=== PATIENT | female | born 1990 | race African-American/Black ===

== ENCOUNTER 2021-05-26 21:58 | Emergency (ER) | payer MEDICAID, MEDICARE ==
[~2021-05-26] VITALS: Ht 167.6 cm; Wt 138.0 kg
[2021-05-26 23:29] LABS: CLARITY URINE CLOUDY (CLEAR); COLOR URINE YELLOW (YELLOW); KETONES URINE 1+ (NEGATIVE); LEUKOCYTE ESTERASE URINE 2+ (NEGATIVE); NITRITE URINE NEGATIVE (NEGATIVE); OCCULT BLOOD URINE NEGATIVE (NEGATIVE); PROTEIN URINE NEGATIVE (NEGATIVE); SPECIFIC GRAVITY URINE 1.031 (1.005-1.030); UROBILINOGEN URINE 0.2 E.U./dL (0.2-1.0)
[2021-05-26 23:32] LABS: BASOPHILS % 0.3 % (0.0-2.0); EOSINOPHILS % 0.7 % (0.0-5.0); HEMATOCRIT. 34.9 % (36.0-48.0); HEMOGLOBIN. 10.6 g/dL (12.0-16.0); LYMPHOCYTES % 17.7 % (20.0-50.0); MEAN CORPUSCULAR HEMOGLOBIN 21.4 pg (28.0-32.0); MEAN CORPUSCULAR VOLUME 70.7 fL (81.0-99.0); MEAN PLATELET VOLUME 7.4 fl (7.4-10.4); MONOCYTES % 6.2 % (2.0-8.0); NEUTROPHILS % 75.1 % (40.0-76.0); PLATELET 234 x1000/uL (130-400); RED BLOOD CELL COUNT 4.93 mill/uL (4.2-5.4); RED CELL DISTRIBUTION WIDTH 19.3 % (11.6-14.6)
[2021-05-26 23:43] LABS: CHLORIDE 109 mEq/L (98-107)
[2021-05-26 23:47] LABS: ETHANOL BLOOD < 10 mg/dL
[2021-05-26 23:54] LABS: B-HCG QUANTITATIVE < 1 mIU/mL (<3)
[2021-05-26 23:55] LABS: HCG SCREEN NEGATIVE
[2021-05-27 00:31] LABS: *AMPHETAMINES SCREEN URINE NEGATIVE (NEGATIVE); *BARBITURATES SCREEN URINE NEGATIVE (NEGATIVE)
[2021-05-27 00:32] LABS: *BENZODIAZEPINES SCREEN URINE NEGATIVE (NEGATIVE); *COCAINE SCREEN URINE NEGATIVE (NEGATIVE); CANNABINOID URINE SCREEN NEGATIVE (NEGATIVE); METHADONE URINE SCREEN NEGATIVE (NEGATIVE); OPIATES URINE SCREEN NEGATIVE (NEGATIVE); PHENCYCLIDINE URINE SCREEN NEGATIVE (NEGATIVE)
[2021-05-27] MEDS ORDERED: NITR-87 MT (04:19)
[2021-05-27] MEDS: NITROFURANTOIN 100MG M/M CAPSULE PO SCH ×2 (09:00→21:00)
[2021-05-27] MEDS ORDERED: ACETAMINOPHEN 325MG TABLET PO ONE (11:00)
[2021-05-27] MEDS ORDERED: LORAZEPAM 1MG TABLET PO NR (11:45)
[2021-05-27] MEDS ORDERED: LORAZEPAM 1MG TABLET PO ONE (11:45)
[2021-05-27] MEDS ORDERED: OLANZAPINE 10 MG/VIAL IM ONE (11:45)
[2021-05-27] MEDS ORDERED: DIPHENHYDRAMINE 50MG/ML VIAL IM ONE (11:45)
[2021-05-27] MEDS ORDERED: LORAZEPAM 2MG/ML CPJ IV ONE (11:45)
[2021-05-27] MEDS ORDERED: OLANZAPINE 5MG TABLET PO SCH (11:45)
[2021-05-27] MEDS ORDERED: HALOPERIDOL LACTATE 5MG/ML VIAL IM ONE (15:30)
[2021-05-27] MEDS ORDERED: LORAZEPAM 2MG/ML CPJ IM ONE (15:30)
[2021-05-28] MEDS: NITROFURANTOIN 100MG M/M CAPSULE PO SCH ×2 (09:00→21:43)
[2021-05-29] MEDS: NITROFURANTOIN 100MG M/M CAPSULE PO SCH ×2 (10:00→21:51)
[2021-05-29] MEDS ORDERED: QUETIAPINE FUMARATE 25MG TABLET PO SCH (21:00)
[2021-05-29 21:22] VITALS: BP 118/76
[2021-05-29] MEDS ORDERED: QUETIAPINE FUMARATE 50MG TABLET PO SCH (22:00)
== END 2021-05-29 22:04 ==
LOC: ER 21:58 → EDBD 21:58 → ER 05-29 22:04
DX: F23 Brief psychotic disorder (principal); N39.0 Urinary tract infection, site not specified; R45.1 Restlessness and agitation; R10.13 Epigastric pain; F31.9 Bipolar disorder, unspecified; Z78.1 Physical restraint status; Z90.49 Acquired absence of other specified parts of digestive tract; Z20.822 Contact with and (suspected) exposure to COVID-19; Z75.1 Person awaiting admission to adequate facility elsewhere
CPT/HCPCS: 36415; 80053; 80305; 80307; 80320; 80329; 81003; 81025; 83690; 84443; 84702; 84703; 85025; 87086; 96372; 96374; 99285; C9803; J1200; J1630; J2060; J3490; U0003; U0005; G0480